=== PATIENT | male | born 1970 | race Caucasian/White ===

== ENCOUNTER 2017-10-27 13:42 | Inpatient (IN) | payer MEDICAID, OTHER ==
[~2017-10-27] VITALS: Ht 185.4 cm; Wt 99.8 kg
[2017-10-27] MEDS ORDERED: KETOROLAC 30MG/ML VIAL IV STA (14:03)
[2017-10-27] MEDS ORDERED: SODIUM CHLORIDE 0.9% 1,000 ML IV ONE (14:03)
[2017-10-27] MEDS ORDERED: MORPHINE SULFATE 4 MG/ML CPJ (NOT FOR IM USE) IV STA (14:03)
[2017-10-27] MEDS ORDERED: ONDANSETRON HCL 4MG/2ML INJ IV STA (14:03)
[2017-10-27 15:10] LABS: CLARITY URINE CLOUDY (CLEAR); COLOR URINE ORANGE (YELLOW); KETONES URINE 2+ (NEGATIVE); LEUKOCYTE ESTERASE URINE TRACE (NEGATIVE); NITRITE URINE NEGATIVE (NEGATIVE); OCCULT BLOOD URINE 3+ (NEGATIVE); PROTEIN URINE TRACE (NEGATIVE); SPECIFIC GRAVITY URINE 1.024 (1.005-1.030)
[2017-10-27 15:39] LABS: *AMPHETAMINES SCREEN URINE NEGATIVE (NEGATIVE); *BARBITURATES SCREEN URINE NEGATIVE (NEGATIVE); *BENZODIAZEPINES SCREEN URINE NEGATIVE (NEGATIVE); *COCAINE SCREEN URINE NEGATIVE (NEGATIVE); BASOPHILS % 0.4 % (0.0-2.0); EOSINOPHILS % 0.4 % (0.0-5.0); HEMATOCRIT. 42.3 % (42.0-52.0); HEMOGLOBIN. 14.5 g/dL (14.0-18.0); LYMPHOCYTES % 9.3 % (20.0-50.0); MEAN CORPUSCULAR HEMOGLOBIN 30.9 pg (28.0-32.0); MEAN CORPUSCULAR VOLUME 90.3 fL (80.0-94.0); MEAN PLATELET VOLUME 6.8 fl (7.4-10.4); METHADONE URINE SCREEN NEGATIVE (NEGATIVE); MONOCYTES % 6.1 % (2.0-8.0); NEUTROPHILS % 83.8 % (40.0-76.0); PLATELET 304 x1000/uL (130-400); RED BLOOD CELL COUNT 4.68 mill/uL (4.7-6.1); RED CELL DISTRIBUTION WIDTH 13.1 % (11.6-14.6)
[2017-10-27 15:40] LABS: CANNABINOID URINE SCREEN PRESUMTIVE POSITIVE (NEGATIVE); OPIATES URINE SCREEN NEGATIVE (NEGATIVE); PHENCYCLIDINE URINE SCREEN NEGATIVE (NEGATIVE)
[2017-10-27 15:41] LABS: CHLORIDE 106 mEq/L (98-107)
[2017-10-27 15:45] LABS: PARTIAL THROMBOPLASTIN TIME 27.4 sec (23.4-31.0); PROTHROMBIN TIME 10.2 sec (9.1-11.1)
[2017-10-27] MEDS ORDERED: TAMSULOSIN HCL 0.4MG SR CAPSULE PO ONE (15:45)
[2017-10-27] MEDS ORDERED: CEFTRIAXONE 1 G PREMIX 50 ML IV ONE (15:45)
[2017-10-27 20:00] VITALS: BP 111/59
[2017-10-27 20:45] VITALS: BP 111/59
[2017-10-27] MEDS ORDERED: TAMSULOSIN HCL 0.4MG SR CAPSULE PO SCH (21:00)
[2017-10-27] MEDS: SODIUM CHL 0.45% + KCL 20MEQ/L 1,000 ML IV SCH (22:26)
[2017-10-27] MEDS: KETOROLAC 30MG/ML VIAL IV SCH (22:26)
[2017-10-27] MEDS ORDERED: SODIUM CHLORIDE 0.9% 1,000 ML IV SCH (22:59)
[2017-10-27] MEDS ORDERED: ACETAMINOPHEN 325MG TABLET PO PRN (23:00)
[2017-10-27] MEDS ORDERED: CLONIDINE 0.1MG TABLET PO PRN (23:00)
[2017-10-27] MEDS ORDERED: MORPHINE SULFATE 4 MG/ML CPJ (NOT FOR IM USE) IV PRN (23:00)
[2017-10-27] MEDS ORDERED: ONDANSETRON HCL 4MG/2ML INJ IV PRN (23:00)
[2017-10-28] MEDS ORDERED: LEVOFLOXACIN 500MG PREMIX 100 ML IV SCH (02:00)
[2017-10-28] MEDS: SODIUM CHL 0.45% + KCL 20MEQ/L 1,000 ML IV SCH (03:00)
[2017-10-28 04:00] VITALS: BP 114/74
[2017-10-28 07:51] LABS: BASOPHILS % 0.4 % (0.0-2.0); EOSINOPHILS % 1.3 % (0.0-5.0); HEMATOCRIT. 39.5 % (42.0-52.0); HEMOGLOBIN. 13.3 g/dL (14.0-18.0); LYMPHOCYTES % 26.5 % (20.0-50.0); MEAN CORPUSCULAR HEMOGLOBIN 30.6 pg (28.0-32.0); MEAN CORPUSCULAR VOLUME 91.2 fL (80.0-94.0); MEAN PLATELET VOLUME 6.6 fl (7.4-10.4); MONOCYTES % 9.1 % (2.0-8.0); NEUTROPHILS % 62.7 % (40.0-76.0); PLATELET 273 x1000/uL (130-400); RED BLOOD CELL COUNT 4.33 mill/uL (4.7-6.1); RED CELL DISTRIBUTION WIDTH 13.1 % (11.6-14.6)
[2017-10-28 08:10] VITALS: BP 128/74
[2017-10-28] MEDS: KETOROLAC 30MG/ML VIAL IV SCH (08:52)
[2017-10-28] MEDS ORDERED: AMLODIPINE 10MG TABLET PO SCH (09:00)
[2017-10-28 10:01] LABS: CHLORIDE 105 mEq/L (98-107)
[2017-10-28 12:31] VITALS: BP 106/61
== END 2017-10-28 13:33 | disposition home or self-care (01) | DRG 694 ==
LOC: ER 13:42 → 6EST 15:53 → EDBEDREQ 15:55 → ENRESERV 17:16
PROVIDERS: ADMIT Hospitalist; ATTEND Hospitalist
DX: N13.2 Hydronephrosis with renal and ureteral calculous obstruction (principal); F17.200 Nicotine dependence, unspecified, uncomplicated; Z87.442 Personal history of urinary calculi; N39.0 Urinary tract infection, site not specified
CPT/HCPCS: 36415; 71045; 74176; 80053; 80305; 81003; 83690; 84484; 85025; 85610; 85730; 93005; 96361; 96365; 96375; 99285; J0696; J1885; J1956; J2270; J2405; J3480; J7030

== ENCOUNTER 2017-10-30 04:31 | Emergency (ER) | payer OTHER ==
[~2017-10-30] VITALS: Ht 177.8 cm; Wt 100.0 kg
[2017-10-30] MEDS ORDERED: KETOROLAC 30MG/ML VIAL IV STA (06:22)
[2017-10-30] MEDS ORDERED: ONDANSETRON HCL 4MG/2ML INJ IV STA (06:22)
[2017-10-30 06:59] LABS: BASOPHILS % 0.2 % (0.0-2.0); EOSINOPHILS % 0.1 % (0.0-5.0); HEMATOCRIT. 42.9 % (42.0-52.0); HEMOGLOBIN. 15.1 g/dL (14.0-18.0); LYMPHOCYTES % 10.3 % (20.0-50.0); MEAN CORPUSCULAR HEMOGLOBIN 31.8 pg (28.0-32.0); MEAN CORPUSCULAR VOLUME 90.6 fL (80.0-94.0); MEAN PLATELET VOLUME 6.4 fl (7.4-10.4); MONOCYTES % 9.5 % (2.0-8.0); NEUTROPHILS % 79.9 % (40.0-76.0); PLATELET 326 x1000/uL (130-400); RED BLOOD CELL COUNT 4.73 mill/uL (4.7-6.1); RED CELL DISTRIBUTION WIDTH 12.9 % (11.6-14.6)
[2017-10-30 07:09] LABS: CHLORIDE 99 mEq/L (98-107)
[2017-10-30 07:39] LABS: CLARITY URINE CLEAR (CLEAR); COLOR URINE YELLOW (YELLOW); KETONES URINE 3+ (NEGATIVE); LEUKOCYTE ESTERASE URINE NEGATIVE (NEGATIVE); NITRITE URINE NEGATIVE (NEGATIVE); OCCULT BLOOD URINE 2+ (NEGATIVE); PROTEIN URINE 1+ (NEGATIVE); SPECIFIC GRAVITY URINE 1.025 (1.005-1.030); UROBILINOGEN URINE 0.2 E.U./dL (0.2-1.0)
[2017-10-30 10:56] VITALS: BP 133/91
== END 2017-10-30 11:18 | disposition home or self-care (01) ==
LOC: ER 04:31
DX: R10.32 Left lower quadrant pain (principal)
CPT/HCPCS: 36415; 80053; 81003; 85025; 96374; 96375; 99284; J1885; J2405; Z7610